=== PATIENT | male | born 1975 | race Caucasian/White ===

== ENCOUNTER 2019-11-11 13:18 | Emergency (ER) | payer OTHER ==
[~2019-11-11] VITALS: Ht 177.8 cm; Wt 90.7 kg
[~2019-11-11 13:18] MED LIST: FAMOTIDINE20 MG ORAL; TYLENOL EXTRA500 MG ORAL
[2019-11-11 13:28] VITALS: BP 120/80
[2019-11-11] MEDS ORDERED: LORazepam 1mg tab ORAL ONE (13:45)
[2019-11-11] MEDS ORDERED: Ketorolac 30mg Inj IV ONE (13:45)
[2019-11-11 14:04] LABS: BASOPHILS % (AUTO) 1.2 % (0.0-2.0); EOSINOPHILS % (AUTO) 0.3 % (0.0-3.0); HEMATOCRIT 50.1 % (42.0-52.0); LYMPHOCYTES % (AUTO) 13.8 % (20.0-45.0); MEAN CORPUSCULAR VOLUME 85 FL (80-99); NEUTROPHILS % (AUTO) 78.6 % (45.0-75.0); PLATELET COUNT 274 K/UL (150-450); RED BLOOD COUNT 5.87 M/UL (4.70-6.10); RED CELL DISTRIBUTION WIDTH 12.6 % (11.6-14.8)
[2019-11-11 14:17] LABS: ANION GAP 9 mmol/L (5-15); BLOOD UREA NITROGEN 9 mg/dL (7-18); CALCIUM 9.2 MG/DL (8.5-10.1); CARBON DIOXIDE 28 MMOL/L (21-32); CHLORIDE 103 MMOL/L (98-107); CREATININE 0.9 MG/DL (0.55-1.30); POTASSIUM 4.1 MMOL/L (3.5-5.1); SODIUM 140 MMOL/L (136-145)
[2019-11-11 14:22] LABS: ALANINE AMINOTRANSFERASE 128 U/L (12-78); ALBUMIN 3.9 G/DL (3.4-5.0); ALKALINE PHOSPHATASE 89 U/L (46-116); ASPARTATE AMINO TRANSFERASE 47 U/L (15-37); BILIRUBIN,TOTAL 0.4 MG/DL (0.2-1.0)
[2019-11-11 14:47] LABS: APPEARANCE,URINE CLEAR; BILIRUBIN, URINE NEGATIVE (NEGATIVE); COLOR,URINE PALE YELLOW; GLUCOSE, URINE (UA) NEGATIVE (NEGATIVE); KETONES,URINE NEGATIVE (NEGATIVE); LEUKOCYTE ESTERASE ,URINE NEGATIVE (NEGATIVE); NITRITE,URINE NEGATIVE (NEGATIVE); PH,URINE 7 (4.5-8.0); PROTEIN,URINE NEGATIVE (NEGATIVE); UROBILINOGEN,URINE NORMAL MG/DL (0.0-1.0)
--- NOTE | 2019-11-11 14:54 | Emergency Room Report ---
History of Present Illness General Chief Complaint: Generalized Weakness Source: Patient Present Illness HPI 44-year-old male with history of anxiety who was recently seen at [facility] for anxiety here brought in by paramedics due to chest pressure and acid reflux x2 days. Patient reports that he takes Celexa and Neurontin at home for his symptoms and clonazepam at night. Patient reports that he wants some Ativan to calm himself down. Reports that he is very worried if something can "major wrong with his heart". Denies any shortness of breath, diarrhea, nausea vomiting. Since the last visit that he was here in September patient has not followed up with psychiatrist, reporting that he should still get to that. Denies any tobacco smoke, marijuana use, other drug use. Denies alcohol intake. Denies headache and dizziness. Reports that his symptoms worsened at night when he tries to sleep. Denies any SI and HI. Allergies: Coded Allergies: No Known Allergies (Unverified , 10/06/19) COVID-19 Screening Contact w/high risk pt: No Experienced COVID-19 symptoms?: No COVID-19 Testing performed MUSIC WRITER: No Patient History Past Medical History: see triage record Past Surgical History: none Pertinent Family History: none Immunizations: UTD Reviewed Nursing Documentation: PMH: Agreed; PSxH: Agreed Nursing Documentation-PMH Past Medical History: No Stated History Review of Systems All Other Systems: negative except mentioned in HPI Physical Exam Vital Signs Date Time Temp Pulse Resp B/P (MAP) Pulse Ox O2 Delivery O2 Flow Rate FiO2 11/11/19 13:18 98.1 76 18 120/80 (93) 99 Room Air Sp02 EP Interpretation: reviewed, normal General Appearance: alert, non-toxic, mild distress Head: normocephalic, atraumatic Eyes: bilateral eye normal inspection, bilateral eye PERRL ENT: hearing grossly normal, normal pharynx, no angioedema, normal voice Neck: full range of motion, supple/symm/no masses Respiratory: chest non-tender, lungs clear, normal breath sounds, no rhonchi, no respiratory distress, no retraction, no wheezing, speaking full sentences Cardiovascular #1: regular rate, rhythm, no edema, no murmur Cardiovascular #2: 2+ carotid (R), 2+ carotid (L), 2+ radial (R), 2+ radial (L), 2+ dorsalis pedis (R), 2+ dorsalis pedis (L) Gastrointestinal: normal bowel sounds, non tender, soft, no mass, no organomegaly, no peritonitis, no bruit, non-distended, no guarding, no hernia, no pulsatile mass, no rebound Genitourinary: no CVA tenderness Musculoskeletal: back normal, no calf tenderness Neurologic: alert, motor strength/tone normal, oriented x3, sensory intact, responsive, speech normal Psychiatric: judgement/insight normal, memory normal, mood/affect normal, no suicidal/homicidal ideation, anxious Skin: no rash Lymphatic: no adenopathy Medical Decision Making PA Attestation All my diagnosis and treatment plans were reviewed ad discussed with my supervising physician Dr. Mejia Diagnostic Impression: Primary Impression: Anxiety Additional Impression: Chest pain ER Course 44-year-old male with history of anxiety who was recently seen at [facility] for anxiety here brought in by paramedics due to chest pressure and acid reflux x2 days. Patient reports that he takes Celexa and Neurontin at home for his symptoms and clonazepam at night. Patient reports that he wants some Ativan to calm himself down. Reports that he is very worried if something can "major wrong with his heart". Denies any shortness of breath, diarrhea, nausea vomiting. Since the last visit that he was here in September patient has not followed up with psychiatrist, reporting that he should still get to that. Denies any tobacco smoke, marijuana use, other drug use. Denies alcohol intake. Denies headache and dizziness. Reports that his symptoms worsened at night when he tries to sleep. Denies any SI and HI. Ddx considered but are not limited to: generalized anxiety disorder, panic attack, depression with psycotic featurs, bipolar disorder, drug overdose, chest pain, IA Vital signs: are WNL, pt. is afebrile H&PE are most consistent with: Unspecified chest pain, anxiety ORDERS: CBC, CMP, troponin, chest x-ray, tox screen, blood alcohol Pepcid, Tylenol ED INTERVENTIONS: NS bolus, Ativan p.o., Pepcid DISCHARGE: At this time pt. is stable for d/c to home. Will provide printed patient care instructions, and any necessary prescriptions. Care plan and follow up instructions have been discussed with the patient prior to discharge. Gave a list of mental health facilities and resources for patient to follow-up with [facility] even though patient reports that he [facility] has a psychiatrist. Patient walks into the ER after being discharged asking for more resources however denies SI and HI. Patient was advised to take medication as directed, was notified that based on cures report he has an active prescription for clonazepam and continue taking that as more benzodiazepines cannot be prescribed at this time due to patient being under the care of provider for Ddx considered but are not limited to: generalized anxiety disorder, panic attack, depression with psycotic featurs, bipolar disorder, drug overdose Vital signs: are WNL, pt. is afebrile H&PE are most consistent with: ORDERS: none required at this time, the diagnosis is clinical ED INTERVENTIONS: None required at this time. DISCHARGE: At this time pt. is stable for d/c to home. Will provide printed patient care instructions, and any necessary prescriptions. Care plan and follow up instructions have been discussed with the patient prior to discharge. Patient was provided with resources for mental health facilities however walking to the ED and requesting for more resources. Denies any SI and HI. Patient was notified that there is an active prescription for clonazepam based on cures history patient is to follow-up with the same prescriber who has been writing it for her reported past several months as patient is to be under close monitoring with taking his medication. At this time Ativan p.o. was provided patient in the ED patient can continue taking the benzodiazepine that has at home described to him by his primary doctor. Patient agrees. Also advised to follow primary doctor regard to chest pain for referral to [facility]. EKG Diagnostic Results Rate: normal Rhythm: NSR ST Segments: no acute changes Other Impression No acute ST changes Chest X-Ray Diagnostic Results Chest X-Ray Diagnostic Results : Chest X-Ray Ordered: Yes # of Views/Limited/Complete: 1 View Indication: Chest Pain EP Interpretation: Yes [place] Xray: Interpretation reviewed, by supervising MD, and agrees with findings. Interpretation: no consolidation, no effusion, no pneumothorax Impression: No acute disease Electronically Signed by: Alba Torres PA-C Last Vital Signs Date Time Temp Pulse Resp B/P (MAP) Pulse Ox O2 Delivery O2 Flow Rate FiO2 11/11/19 14:15 98.1 11/11/19 14:15 72 18 128/82 99 11/11/19 13:28 Room Air Disposition: HOME, SELF-CARE Condition: Stable Scripts Acetaminophen* (TYLENOL EXTRA STRENGTH*) 500 Mg Tablet 500 MG ORAL Q8H PRN for Prn Headache/Temp > 101, #30 TAB 0 Refills Prov: Alba Vitale 11/11/19 Famotidine* (Pepcid 20mg tablet*) 20 Mg Tablet 20 MG ORAL TWICE A DAY, #60 TAB 0 Refills Prov: Alba Vitale 11/11/19 Referrals: BOB HANSON,REFERRING (PCP) Patient Instructions: Generalized Anxiety Disorder, Nonspecific Chest Pain, Weakness Additional Instructions: Take medication as directed, follow-up with your psychiatrist regarding your management of anxiety at this time no more benzodiazepines can be prescribed you have an active prescription for clonazepam given to you by your primary doctor. Follow-up with primary doctor regarding your intermittent chest pain for possible referral to [facility]. Avoid eating spicy acidic food. Take antacid as prescribed. If worsening symptoms return to the emergency room Alba Vitale Nov 11, 2019 14:54
[2019-11-11] MEDS ORDERED: TYLENOL EXTRA500 MG ORAL (14:56)
[2019-11-11] MEDS ORDERED: FAMOTIDINE20 MG ORAL (14:56)
[2019-11-11 15:41] VITALS: BP 128/82
--- NOTE | 2019-11-11 15:58 | Diagnostic Imaging Report ---
Indication: Shortness of breath Technique: One view of the chest Comparison: None Findings: The heart is borderline enlarged. The lungs and pleural spaces are clear Impression: Borderline cardiomegaly. No acute process
--- NOTE | 2019-11-12 17:38 | Cardiology Report ---
APPROVED REPORT EKG Measurement Heart [id number] DC [id number] <Conclusion> Normal sinus rhythm Normal ECG
== END 2019-11-11 15:42 | disposition home or self-care (01) ==
LOC: EDBD 13:18 → EMR 13:45
DX: F41.9 Anxiety disorder, unspecified (principal); R07.9 Chest pain, unspecified
CPT/HCPCS: 36415; 71045; 80053; 80307; 81003; 84484; 85025; 93005; 96361; 96374; 96375; G0480; J1885; J7030; S0028; Z7502; 99284

== ENCOUNTER 2019-12-22 08:00 | Emergency (ER) | payer OTHER ==
[~2019-12-22] VITALS: Ht 182.9 cm; Wt 99.8 kg
--- NOTE | 2019-12-22 08:10 | NUR ---
ED Nurse Note: IV line was established on left AC 18ga, blood sent to lab
[2019-12-22 08:16] VITALS: BP 158/90
--- NOTE | 2019-12-22 08:20 | NUR ---
ED Nurse Note: Patient was BENNY RA # 29 from home due to abdominal pain. Patient stated to the paramedics that he has severe upper abd pain, when patient arrived to ER stated, that he has chest pain. Patient presented anxious, AAO x4, VSS at this time.
[2019-12-22] MEDS ORDERED: Ketorolac 30mg Inj IV ONE (08:30)
[2019-12-22] MEDS ORDERED: Dicyclomine HCl 10mg/5ml oral soln ORAL ONE (08:30)
[2019-12-22] MEDS ORDERED: Lidocaine 2% Visc 15ml soln ORAL ONE (08:30)
[2019-12-22] MEDS ORDERED: LORazepam Inj 2mg/ml 1ml IV ONE (08:30)
[2019-12-22] MEDS ORDERED: Mylanta II UD 30ml ORAL ONE (08:30)
[2019-12-22 08:45] LABS: BASOPHILS % (AUTO) 0.8 % (0.0-2.0); EOSINOPHILS % (AUTO) 1.4 % (0.0-3.0); HEMATOCRIT 53.2 % (42.0-52.0); HEMOGLOBIN 17.7 G/DL (14.2-18.0); LYMPHOCYTES % (AUTO) 20.9 % (20.0-45.0); MEAN CORPUSCULAR VOLUME 91 FL (80-99); MONOCYTES % (AUTO) 6.2 % (1.0-10.0); NEUTROPHILS % (AUTO) 70.6 % (45.0-75.0); PLATELET COUNT 261 K/UL (150-450); RED BLOOD COUNT 5.81 M/UL (4.70-6.10); WHITE BLOOD COUNT 9.1 K/UL (4.8-10.8)
[2019-12-22 08:52] LABS: ANION GAP 8 mmol/L (5-15); BLOOD UREA NITROGEN 8 mg/dL (7-18); CALCIUM 8.7 MG/DL (8.5-10.1); CARBON DIOXIDE 25 MMOL/L (21-32); CHLORIDE 104 MMOL/L (98-107); POTASSIUM 3.8 MMOL/L (3.5-5.1); SODIUM 137 MMOL/L (136-145)
[2019-12-22 08:56] LABS: ALANINE AMINOTRANSFERASE 172 U/L (12-78); ALBUMIN 3.4 G/DL (3.4-5.0); ALBUMIN/GLOBULIN RATIO 0.9 (1.0-2.7); ALKALINE PHOSPHATASE 90 U/L (46-116); ASPARTATE AMINO TRANSFERASE 73 U/L (15-37); BILIRUBIN,TOTAL 0.4 MG/DL (0.2-1.0)
[2019-12-22] MEDS ORDERED: FAMOTIDINE20 MG ORAL (09:49)
[2019-12-22 09:55] VITALS: BP 155/82
--- NOTE | 2019-12-22 09:56 | NUR ---
ER DISCHARGE NOTE: Patient is cleared to be discharged per ERMD, pt is aox4, on room air, with stable vital signs. pt was given dc and prescription instructions, pt was able to verbalize understanding, pt id band and iv site removed without complications. pt is able to ambulate with steady gait. pt took all belongings. pt will be given taxi voucher.
--- NOTE | 2019-12-22 10:23 | NUR ---
ED Nurse Note: Pt picked up by danny.
--- NOTE | 2019-12-22 11:53 | Emergency Room Report ---
History of Present Illness General Chief Complaint: Abdominal Pain Source: Patient Present Illness HPI 44-year-old male presents to ED for evaluation. Brought in by EMS from home. Complaining of epigastric pain, chest pain. States his heart was racing. Started today this morning. History of gastritis. Take Prilosec. States he also does have anxiety. Denies any heart disease history. Denies smoking or drug use. Pain is dull, 5 out of 10, nonradiating. No other aggravating relieving factors. Denies any other associated symptoms Allergies: Coded Allergies: No Known Allergies (Unverified , 10/06/19) COVID-19 Screening Contact w/high risk pt: No Experienced COVID-19 symptoms?: No COVID-19 Testing performed MAGNETIC TESTER: No Patient History Past Medical History: GERD Past Surgical History: none Pertinent Family History: none Social History: Denies: smoking, alcohol use, drug use Immunizations: UTD Reviewed Nursing Documentation: PMH: Agreed; PSxH: Agreed Nursing Documentation-PMH Past Medical History: No Stated History Review of Systems All Other Systems: negative except mentioned in HPI Physical Exam Vital Signs Date Time Temp Pulse Resp B/P (MAP) Pulse Ox O2 Delivery O2 Flow Rate FiO2 12/22/19 07:57 98.4 101 16 158/90 (112) 100 Room Air Sp02 EP Interpretation: reviewed, normal General Appearance: no apparent distress, alert, GCS 15, non-toxic Head: normocephalic, atraumatic Eyes: bilateral eye normal inspection, bilateral eye PERRL ENT: hearing grossly normal, normal pharynx, no angioedema, normal voice Neck: full range of motion, supple/symm/no masses Respiratory: chest non-tender, lungs clear, normal breath sounds, speaking full sentences Cardiovascular #1: regular rate, rhythm, no edema Cardiovascular #2: 2+ carotid (R), 2+ carotid (L), 2+ radial (R), 2+ radial (L), 2+ dorsalis pedis (R), 2+ dorsalis pedis (L) Gastrointestinal: normal bowel sounds, non tender, soft, non-distended, no guarding, no rebound Rectal: deferred Genitourinary: normal inspection, no CVA tenderness Musculoskeletal: back normal, normal range of motion, gait/station normal, non- tender Neurologic: alert, motor strength/tone normal, oriented x3, sensory intact, responsive, speech normal Psychiatric: judgement/insight normal, memory normal, mood/affect normal, no suicidal/homicidal ideation Reflexes: 3+ bicep (R), 3+ bicep (L), 3+ tricep (R), 3+ tricep (L), 3+ knee (R), 3+ knee (L) Lymphatic: no adenopathy Medical Decision Making Diagnostic Impression: Primary Impression: Gastritis Qualified Codes: K29.00 - Acute gastritis without bleeding Additional Impression: Anxiety ER Course Hospital Course 44-year-old male presents with chest pain, abdominal pain, feeling anxious. History of gastritis differential diagnosis: gastritis, SBO, cholecystits Clinical course Patient placed on stretcher. On nurse monitoring. After initial history and physical I ordered labs, IV fluids, Toradol, Zofran, Pepcid, Ativan Labs - no leukocytosis, no electrolyte abnormalities, LFTs normal, opponent nega tivE EKGnormal sinus rhythm no acute ischemic changes interpreted by me X-ray no acute process On reevaluation patient states she feels better. I discussed findings with patient. Likely gastritis. Likely anxiety. Safe for discharge close outpatient follow-up I feel this is a highly complex case requiring extensive working including EKG/Rhythm strip, Xray/CT/US, Blood/urine lab work, repeat exams while in ED, and administration of strong opiates/narcotics for pain control, admission to hospital or close patient follow up. Diagnosis - gastritis anxiety Stable and discharged to home with prescriptions for Pepcid. Followup with PMD. Return to ED if symptoms recur or worsen Laboratory Tests Test 12/22/19 08:13 White Blood Count 9.1 K/UL (4.8-10.8) Red Blood Count 5.81 M/UL (4.70-6.10) Hemoglobin 17.7 G/DL (14.2-18.0) Hematocrit 53.2 % (42.0-52.0) H Mean Corpuscular Volume 91 FL (80-99) Mean Corpuscular Hemoglobin 30.5 PG (27.0-31.0) Mean Corpuscular Hemoglobin Concent 33.3 G/DL (32.0-36.0) Red Cell Distribution Width 14.0 % (11.6-14.8) Platelet Count 261 K/UL (150-450) Mean Platelet Volume 6.8 FL (6.5-10.1) Neutrophils (%) (Auto) 70.6 % (45.0-75.0) Lymphocytes (%) (Auto) 20.9 % (20.0-45.0) Monocytes (%) (Auto) 6.2 % (1.0-10.0) Eosinophils (%) (Auto) 1.4 % (0.0-3.0) Basophils (%) (Auto) 0.8 % (0.0-2.0) Sodium Level 137 MMOL/L (136-145) Potassium Level 3.8 MMOL/L (3.5-5.1) Chloride Level 104 MMOL/L (98-107) Carbon Dioxide Level 25 MMOL/L (21-32) Anion Gap 8 mmol/L (5-15) Blood Urea Nitrogen 8 mg/dL (7-18) Creatinine 1.0 MG/DL (0.55-1.30) Estimat Glomerular Filtration Rate > 60 mL/min (>60) Glucose Level 107 MG/DL (74-106) H Calcium Level 8.7 MG/DL (8.5-10.1) Total Bilirubin 0.4 MG/DL (0.2-1.0) Aspartate Amino Transf (AST/SGOT) 73 U/L (15-37) H Alanine Aminotransferase (ALT/SGPT) 172 U/L (12-78) H Alkaline Phosphatase 90 U/L (46-116) Troponin I 0.000 ng/mL (0.000-0.056) Total Protein 7.4 G/DL (6.4-8.2) Albumin 3.4 G/DL (3.4-5.0) Globulin 4.0 g/dL Albumin/Globulin Ratio 0.9 (1.0-2.7) L Lipase 264 U/L (73-393) EKG Diagnostic Results Troponin ordered: Yes Rate: normal Rhythm: NSR ST Segments: no acute changes ASA given to the pt in ED: No Rhythm Strip Diag. Results EP Interpretation: yes Rhythm: NSR, no PVC's, no ectopy Chest X-Ray Diagnostic Results Chest X-Ray Diagnostic Results : Chest X-Ray Ordered: Yes Indication: Chest Pain EP Interpretation: Yes Interpretation: no consolidation, no effusion, no pneumothorax, no acute cardiopulmonary disease Impression: No acute disease Electronically Signed by: Electronically signed by Rahat Mejia MD Last Vital Signs Date Time Temp Pulse Resp B/P (MAP) Pulse Ox O2 Delivery O2 Flow Rate FiO2 12/22/19 09:55 97.7 90 16 155/82 100 Room Air Status: improved Disposition: HOME, SELF-CARE Condition: Stable Scripts Famotidine* (Pepcid 20mg tablet*) 20 Mg Tablet 20 MG ORAL DAILY for Gerd, #30 TAB 0 Refills Prov: Rahat Mejia MD 12/22/19 Patient Instructions: Gastritis, Adult, [id number] Rahat Mejia MD Dec 22, 2019 11:53
--- NOTE | 2019-12-22 14:01 | Diagnostic Imaging Report ---
Indication: Abdominal distention Technique: One view of the chest Comparison: none Findings: Lungs and pleural spaces are clear. Heart size is normal. Impression: No acute process
--- NOTE | 2019-12-23 14:39 | Cardiology Report ---
APPROVED REPORT EKG Measurement Heart [id number] DC 154P56 [id number] <Conclusion> Normal sinus rhythm Normal ECG
== END 2019-12-22 09:56 | disposition home or self-care (01) ==
LOC: EDBD 08:00 → EMR 08:30 → MERGE 08:30 → EMR 09:56
DX: K29.00 Acute gastritis without bleeding (principal); F41.9 Anxiety disorder, unspecified; K21.9 Gastro-esophageal reflux disease without esophagitis
CPT/HCPCS: 36415; 71045; 80053; 83690; 84484; 85025; 93005; 96361; 96374; 96375; J1885; J7030; S0028; Z7502; 99284